=== PATIENT | male | born 1975 | race Caucasian/White ===

== ENCOUNTER → 2021-07-31 16:17 | Outpatient (BNVA) | payer OTHER, SELFPAY | PROVIDERS: Visit Provider Nurse Practitioner Family | DX: Z20.822 Contact with and (suspected) exposure to COVID-19 (principal) | CPT/HCPCS: 87635 ==

== ENCOUNTER → 2022-10-11 14:27 | Outpatient (BNVA) | payer BC, SELFPAY | PROVIDERS: Visit Provider Nurse Practitioner | DX: R39.9 Unspecified symptoms and signs involving the genitourinary system (principal) | CPT/HCPCS: 81000 ==

== ENCOUNTER 2022-12-04 07:05 | Day surgery (SDC) | payer BC, SELFPAY ==
[2022-12-02 10:19] VITALS: BMI 34.9
[2022-12-04 07:18] VITALS: BP 150/78; PULSE 80; RESP 17; TEMP 36.2; O2SAT 98
[2022-12-04] MEDS: sodium chloride 0.9% 1,000 ML 30 ML IV (07:23)
--- NOTE | 2022-12-04 08:19 | ANES.PREANE2 ---
Pre-Anesthetic Assessment Height/Weight: Height 1.73 m Weight 104.326 kg Temp Pulse Resp BP Pulse Ox O2 Del Method 97.1 F L 80 17 150/78 98 Room Air 12/04/22 07:18 12/04/22 07:18 12/04/22 07:18 12/04/22 07:18 12/04/22 07:18 12/04/22 07:18 Preop Diagnosis: screening Operation Date: 12/04/22 08:30 Proposed Procedures p [id number] Colon Z12.11(Not Applicable) - Edin Liz, DO Was Beta Maia taken within 24 hours: N/A Was Clonidine taken within 24 hours: N/A Last intake: Intake Last Liquid Date 12/03/22 Last Liquid Time 22:00 Last Solid Date 12/02/22 Last Solid Time 20:00 Social No tobacco 1ppd pack(s) per day 25 pack years Exam alert and oriented x 3 Airway Submandibular: within normal limits Cervical ROM: within normal limits Mallampati: Class III Dentition: full History/ROS No significant history except as noted Pulmonary None reported CV/HEM Hypertension None reported Hepatic None reported GI None reported Metabolic Hyperlipidemia [facility] None reported Neuropsych None reported Anesthetic Plan ASA status: 2 Anesthesia: MAC Risk of > 500 ml blood loss (7ml/kg in children): No Medications/Allergies Home Medications Medication Instructions Recorded Confirmed Last Taken Type diclofenac sodium 3 % topical gel 1 applic topical BID 7 days #100 10/11/22 12/04/22 Unknown Rx grams aspirin 81 mg tablet,delayed 81 mg PO DAILY 11/07/22 12/04/22 11/28/22 History release atorvastatin 10 mg tablet 10 mg PO DAILY 11/07/22 12/04/22 12/02/22 History lisinopril 40 mg tablet 40 mg PO DAILY 11/07/22 12/04/22 12/03/22 History Allergies Allergy/AdvReac Type Severity Reaction Status Date / Time No Known Allergies Allergy Unverified 12/04/22 07:17 Current Medications Generic Name Dose Route Start Last Admin Trade Name Freq PRN Reason Stop Dose Admin Sodium Chloride 1,000 mls @ 30 mls/hr 12/04/22 07:15 12/04/22 07:23 Sodium Chloride 0.9% IV 12/05/22 07:14 30 mls/hr .Q24H DAWIT Administration PFSH Anesthesia Medical History HTN (hypertension) with goal to be determined Data Anesthesia Cardiac Studies: No Data to Display
--- NOTE | 2022-12-04 09:23 | PM.HP ---
Providers/Chief Complaint Primary Care Provider: Jose Thurman MD Chief Complaint: Z12.11 History of Present Illness Edin Sharif is a 47 year old male here for his first screening colonoscopy. He denies any family history of colon cancer, abdominal pain, nausea, emesis, diarrhea, constipation, hematochezia and/or melena Medications/Allergies Home Medications Medication Instructions Recorded Confirmed Last Taken Type diclofenac sodium 3 % topical gel 1 applic topical BID 7 days #100 10/11/22 12/04/22 Unknown Rx grams aspirin 81 mg tablet,delayed 81 mg PO DAILY 11/07/22 12/04/22 11/28/22 History release atorvastatin 10 mg tablet 10 mg PO DAILY 11/07/22 12/04/22 12/02/22 History lisinopril 40 mg tablet 40 mg PO DAILY 11/07/22 12/04/22 12/03/22 History Allergies Allergy/AdvReac Type Severity Reaction Status Date / Time No Known Allergies Allergy Unverified 12/04/22 07:17 PFSH Acute PFSH: Medical History HTN (hypertension) with goal to be determined Vitals/I&O/Wt Last Vital Signs Temp 97.1 F L 12/04/22 07:18 Pulse 80 12/04/22 07:18 Resp 17 12/04/22 07:18 BP 150/78 12/04/22 07:18 Pulse Ox 98 12/04/22 07:18 O2 Del Method Room Air 12/04/22 07:18 Weight last 48 hrs Weight 230 lb A&P Assessment and plan (1) Colon cancer screening: Plan Colonoscopy The risks and benefits of the procedure, including bleeding, infection, intestinal perforation requiring surgery, missed lesion were explained to the patient. The patient is understanding of the risks and wishes to proceed. Attestations Medical Necessity Statement*: Home Coding Level of Care Code Acute Code for Chg Fwd Diagnoses Colon cancer screening Z12.11
[2022-12-04 09:49] VITALS: BP 132/58; PULSE 64; RESP 20; TEMP 36.2; O2SAT 96
[2022-12-04 09:58] VITALS: BP 121/78; PULSE 66; RESP 18; O2SAT 96
--- NOTE | 2022-12-04 14:24 | ANE.PACU2 ---
Inpatient post-anesthesia follow up: Airway intact: Yes Vital signs: Temperature 97.2 F Pulse Rate 66 Respiratory Rate 18 Blood Pressure 121/78 Pulse Oximetry 96 Oxygen Delivery Me thod Room Air Oxygen Flow Rate Fraction of Inspir ed Oxygen Hydration adequate: Yes Nausea and vomiting: No Pain level: 1 Mental status: Baseline
== END 2022-12-04 10:18 | disposition home or self-care (01) ==
PROVIDERS: PCP Family Medicine; Visit Provider Surgery
PROC: 0DJD8ZZ Inspection of Lower Intestinal Tract, Via Natural or Artificial Opening Endoscopic (ICD-10-PCS; CPT 45378; principal; 2022-12-04 08:30)
DX: D12.3 Benign neoplasm of transverse colon (principal); Z12.11 Encounter for screening for malignant neoplasm of colon; D12.4 Benign neoplasm of descending colon; F17.210 Nicotine dependence, cigarettes, uncomplicated; I10 Essential (primary) hypertension; E78.5 Hyperlipidemia, unspecified; Z79.82 Long term (current) use of aspirin; K64.8 Other hemorrhoids
CPT/HCPCS: 45385; 88305; J2704; J7030

== ENCOUNTER 2023-02-07 11:09 | Outpatient (CLI) | payer BC, SELFPAY ==
--- NOTE | 2023-02-07 11:29 | XR_ITS ---
WS: [id number] Exam: XR shoulder RT min 2V* [id number] Date/Time of Exam: 02/07/2023 11:42 AM Reason For Exam: R SHOULDER PAIN Comparison 10/25/2017. No fracture or dislocation. Mild DJD at the AC joint. Normal soft tissues. XR/XR shoulder RT min 2V* [id number] IMPRESSION: 1. Mild AC joint DJD.
--- NOTE | 2023-02-07 11:29 | XR_ITS ---
WS: [id number] Exam: XR ribs RT 2V* [id number] Date/Time of Exam: 02/07/2023 11:41 AM Reason For Exam: R SIDED RIB PAIN Comparison 08/15/2016. No acute right rib fracture or pneumothorax. No pleural or pulmonary reactive changes. XR/XR ribs RT 2V* [id number] IMPRESSION: 1. Negative right rib study.
== END 2023-02-07 11:10 | disposition home or self-care (01) ==
LOC: RAD 11:15
PROVIDERS: PCP Family Medicine; Visit Provider Nurse Practitioner Family
DX: R07.81 Pleurodynia (principal)
CPT/HCPCS: 71100; 73030

== ENCOUNTER 2023-04-01 07:39 | Outpatient (CLI) | payer BC, SELFPAY ==
--- NOTE | 2023-04-01 07:59 | XR_ITS ---
WS: [id number] Exam: XR thoracic spine 3V* [id number] Date/Time of Exam: 04/01/2023 8:17 AM Reason For Exam: THORACIC REGION BACK PAIN No fracture or dislocation. Mild spondylosis and mild degenerative disc change at multiple levels. Mi ld levoscoliosis. Normal paraspinal soft tissues. IMPRESSION1. Degenerative changes and mild levoscoliosis. 2. No fracture or malalignment.
== END 2023-04-01 07:40 | disposition home or self-care (01) ==
PROVIDERS: PCP Family Medicine; Visit Provider Family Medicine
DX: M47.814 Spondylosis without myelopathy or radiculopathy, thoracic region (principal); M41.84 Other forms of scoliosis, thoracic region
CPT/HCPCS: 72072

== ENCOUNTER 2023-05-07 16:08 | Outpatient (RCR) | payer BC, SELFPAY | END 2023-05-20 23:59 | disposition home or self-care (01) | LOC: SPT 16:08 | PROVIDERS: Visit Provider Family Medicine | DX: M54.6 Pain in thoracic spine (principal); M25.611 Stiffness of right shoulder, not elsewhere classified; M62.830 Muscle spasm of back | CPT/HCPCS: 97110; 97161 ==